=== PATIENT | male | born 1990 | race Caucasian/White ===

== ENCOUNTER 2018-11-18 16:37 | Emergency (ER) | payer OTHER ==
[2018-11-18 16:43] VITALS: BP 113/76
[2018-11-18] MEDS ORDERED: SODIUM CHLORIDE 0.9% 1,000 ML IV ONE (16:51)
[2018-11-18] MEDS ORDERED: ONDANSETRON 4 MG/2 ML VIAL IVP STA (16:51)
[2018-11-18] MEDS ORDERED: PANTOPRAZOLE 40 MG VIAL IVP STA (16:51)
--- NOTE | 2018-11-18 16:53 | ED Physician Documentation ---
PD HPI ABD PAIN - Stated complaint Stated Complaint: VOMITING - Chief complaint Chief Complaint: Abd Pain - History obtained from History obtained from: Patient, Family - History of Present Illness Timing - onset: Other (28-year-old gentleman with benign past medical history started vomiting this morning. The first few episodes were basically normal vomit but after that developed Bloody emesis. He has central and upper abdominal pain and myalgias. No fevers or recent foreign travel.) Review of Systems Ten Systems: 10 systems reviewed and negative Constitutional: reports: Myalgias. denies: Fever, Chills Nose: denies: Rhinorrhea / runny nose, Congestion Throat: denies: Sore throat Cardiac: denies: Chest pain / pressure, Palpitations Respiratory: denies: Dyspnea, Cough PD PAST MEDICAL HISTORY - Present Medications Home Medications: Ambulatory Orders Medication Instructions Recorded Confirmed Omeprazole Magnesium 20 mg PO DAILY #7 capsule. 11/18/18 Ondansetron Odt [Zofran] 4 mg TL Q6H PRN #10 tablet 11/18/18 - Allergies Allergies/Adverse Reactions: Allergies Allergy/AdvReac Type Severity Reaction Status Date / Time No Known Drug Allergies Allergy Verified 11/18/18 16:43 PD ED PE NORMAL - Vitals Vital signs reviewed: Yes - General General: Alert and oriented X 3, No acute distress - HEENT HEENT: PERRL, EOMI - Neck Neck: Supple, no meningeal sign, No bony TTP - Cardiac Cardiac: RRR, No murmur - Respiratory Respiratory: No respiratory distress, Clear bilaterally - Abdomen Abdomen: Normal bowel sounds, Soft, Non tender - Back Back: No CVA TTP, No spinal TTP - Derm Derm: Normal color, Warm and dry - Extremities Extremities: No edema, No calf tenderness / cord - Neuro Neuro: Alert and oriented X 3, Normal speech Results - Vitals Vitals: Vital Signs - 24 hr 11/18/18 16:40 Temperature 36.6 C Heart Rate 113 H Respiratory 18 Rate Blood Pressure 113/76 O2 Saturation 98 Oxygen O2 Source Room air - Labs Labs: Laboratory Tests 11/18/18 11/18/18 11/18/18 17:00 17:00 17:00 WBC 11.3 H RBC 5.09 Hgb 15.5 Hct 48.3 MCV 94.8 H MCH 30.5 MCHC 32.2 RDW 13.3 Plt Count 213 MPV 7.9 Neut # (Auto) 9.1 H Lymph # (Auto) 1.6 [place] # (Auto) 0.6 Eos # (Auto) 0.0 Baso # (Auto) 0.0 Absolute Nucleated RBC 0.01 Nucleated RBC % 0.0 PT 12.9 H INR 1.1 Sodium 139 Potassium 4.2 Chloride 98 L Carbon Dioxide 26 Anion Gap 15.0 H BUN 21 H Creatinine 1.0 Estimated GFR (MDRD) 90 Glucose 88 Calcium 9.7 Total Bilirubin 1.0 AST 60 H ALT 43 Alkaline Phosphatase 58 Total Protein 8.6 H Albumin 4.8 Globulin 3.8 Albumin/Globulin Ratio 1.3 Lipase 26 PD MEDICAL DECISION MAKING - ED course ED course: 28-year-old gentleman with vomiting today, sounds like a viral syndrome and had delayed onset hematemesis considered consistent with a Rhiannon-Barajas tear. Abdominal examination both initially on on repeat he did recheck including just prior to discharge remained benign without tenderness. He improved with IV fluids and Reglan here, we did initially tried Zofran which did not help much. He also got a dose of Protonix. He passed an oral challenge with apple juice. Advised that this should be a very brief illness and he should return tomorrow midday if not better, anytime if worse. Departure - Departure Disposition: 01 Home, Self Care Clinical Impression: Vomiting Qualifiers: Vomiting type: unspecified Vomiting Intractability: non-intractable Nausea presence: with nausea Qualified Code(s): R11.2 - Nausea with vomiting, unspecified Hematemesis Qualifiers: Nausea presence: with nausea Qualified Code(s): K92.0 - Hematemesis Condition: Good Record reviewed to determine appropriate education?: Yes Instructions: ED Nausea Vomiting Prescriptions: Omeprazole Magnesium 20 mg PO DAILY #7 capsule. Ondansetron Odt [Zofran] 4 mg TL Q6H PRN #10 tablet PRN Reason: Nausea / Vomiting Comments: As discussed I expect this to be a short illness. Return tomorrow midday if not better, sooner if worse or if symptoms recur.
[2018-11-18 17:15] LABS: BASOPHILS % (AUTO) 0.2 %; HGB - HEMOGLOBIN 15.5 g/dL (14.0-18.0); LYMPHOCYTES # (AUTO) 1.6 10^3/uL (1.5-3.5); LYMPHOCYTES % (AUTO) 13.9 %; MEAN CORPUSCULAR HEMOGLOBIN 30.5 pg (27.0-31.0); MEAN CORPUSCULAR HGB CONC 32.2 g/dL (32.0-36.0); MEAN CORPUSCULAR VOLUME 94.8 fL (80.0-94.0); MEAN PLATELET VOLUME 7.9 fL (7.4-11.4); MONOCYTES # (AUTO) 0.6 10^3/uL (0.0-1.0); MONOCYTES % (AUTO) 5.6 %; NEUTROPHILS # (AUTO) 9.1 10^3/uL (1.5-6.6); NEUTROPHILS % (AUTO) 80.3 %; PLT - PLATELET COUNT 213 10^3/uL (130-450); RED BLOOD COUNT 5.09 10^6/uL (4.70-6.10); RED CELL DISTRIBUTION WIDTH 13.3 % (12.0-15.0); WHITE BLOOD COUNT 11.3 x10^3/uL (4.8-10.8)
[2018-11-18 17:16] LABS: INR 1.1 (0.8-1.2); PT - PROTHROMBIN TIME 12.9 secs (9.9-12.6)
[2018-11-18 17:23] LABS: ALBUMIN 4.8 g/dL (3.2-5.5); ALBUMIN/GLOBULIN RATIO 1.3 (1.0-2.2); CALCIUM 9.7 mg/dL (8.5-10.3); TOTAL PROTEIN 8.6 g/dL (6.7-8.2)
[2018-11-18] MEDS ORDERED: METOCLOPRAMIDE 10 MG/2 ML VIAL IVP STA (17:38)
[2018-11-18] MEDS ORDERED: ONDANSETRON ODT 4 MG Prepack 2 TL STA (18:30)
== END 2018-11-18 18:42 | disposition home or self-care (01) ==
LOC: ED 16:37
DX: K92.0 Hematemesis (principal)
CPT/HCPCS: 36415; 80053; 83690; 85025; 85610; 96361; 96374; 96375; 99283; J2765